=== PATIENT | male | born 1955 | race Caucasian/White ===

== ENCOUNTER 2021-10-02 16:40 | Emergency (ER) | payer OTHER ==
[2021-10-02 18:46] LABS: CORONAVIRUS COVID-19 NAA NEGATIVE (NEGATIVE)
== END 2021-10-02 19:25 | disposition other institution (70) ==
LOC: JP.ED 16:40
DX: F10.139 Alcohol abuse with withdrawal, unspecified (principal); Z79.82 Long term (current) use of aspirin; Z79.02 Long term (current) use of antithrombotics/antiplatelets; Z79.899 Other long term (current) drug therapy; Z20.822 Contact with and (suspected) exposure to COVID-19; Y90.0 Blood alcohol level of less than 20 mg/100 ml
CPT/HCPCS: 0241U; 36415; 80053; 80305; 80307; 81001; 85025; 99285

== ENCOUNTER 2021-11-04 15:46 | Emergency (ER) | payer MEDICARE, OTHER ==
[2021-11-04 18:10] LABS: CORONAVIRUS COVID-19 NAA NEGATIVE (NEGATIVE)
[2021-11-04] MEDS: Thiamine 100 MG Tab PO SCH (20:46)
[2021-11-04] MEDS: Multivitamins with Iron/Calcium/Folic Acid/Minerals Tab PO SCH (20:46)
[2021-11-04] MEDS: Folic Acid 1 MG Tab PO SCH (20:46)
[2021-11-04] MEDS ORDERED: OLANZapine 5 MG Tab PO SCH (21:00)
[2021-11-05] MEDS ORDERED: Non-Formulary Medication 1 Each (Isosorbide Mononitrate [Imdur] 60 MG Tab.Er) PO SCH (14:30)
[2021-11-05] MEDS: Metoprolol Tartrate 25 MG Tab PO SCH ×2 (16:59→21:15)
[2021-11-05] MEDS: OLANZapine 5 MG Tab PO SCH (17:00)
[2021-11-05] MEDS: Folic Acid 1 MG Tab PO SCH ×2 (17:07→21:16)
[2021-11-05] MEDS: Aspirin 81 MG Tab.EC PO SCH (17:09)
[2021-11-05] MEDS: Clopidogrel 75 MG Tab PO SCH (17:09)
[2021-11-05] MEDS ORDERED: Thiamine 100 MG Tab PO SCH (21:00)
[2021-11-05] MEDS ORDERED: Non-Formulary Medication 1 Each (Atorvastatin Calcium [Lipitor] 40 MG Tablet) PO SCH (21:00)
[2021-11-05] MEDS: Haloperidol Lactate 5 MG/ML SDV IM SCH (21:04)
[2021-11-05] MEDS: Thiamine 100 MG Tab PO SCH (21:15)
[2021-11-05] MEDS: Multivitamins with Iron/Calcium/Folic Acid/Minerals Tab PO SCH (21:15)
[2021-11-06] MEDS: Clopidogrel 75 MG Tab PO SCH (08:20)
[2021-11-06] MEDS: OLANZapine 5 MG Tab PO SCH (08:22)
[2021-11-06] MEDS: Metoprolol Tartrate 25 MG Tab PO SCH ×3 (08:24→21:41)
[2021-11-06] MEDS: Aspirin 81 MG Tab.EC PO SCH (08:42)
[2021-11-06] MEDS: Folic Acid 1 MG Tab PO SCH ×2 (08:43→20:33)
[2021-11-06] MEDS: Isosorbide Mononitrate 30 MG Tab.ER PO SCH (08:43)
[2021-11-06] MEDS: Haloperidol Lactate 5 MG/ML SDV IM SCH (20:39)
[2021-11-06] MEDS: Hydrochlorothiazide 25 MG Tab PO SCH (20:40)
[2021-11-06] MEDS: Thiamine 100 MG Tab PO SCH ×2 (20:40→21:40)
[2021-11-06] MEDS: Multivitamins with Iron/Calcium/Folic Acid/Minerals Tab PO SCH ×2 (20:40→21:41)
[2021-11-06] MEDS: atorvaSTATin 20 MG Tab PO SCH ×2 (20:40→21:40)
[2021-11-07] MEDS: Clopidogrel 75 MG Tab PO SCH (10:36)
[2021-11-07] MEDS: Isosorbide Mononitrate 30 MG Tab.ER PO SCH (10:36)
[2021-11-07] MEDS: OLANZapine 5 MG Tab PO SCH (10:36)
[2021-11-07] MEDS: Folic Acid 1 MG Tab PO SCH ×2 (10:37→19:55)
[2021-11-07] MEDS: Aspirin 81 MG Tab.EC PO SCH (10:37)
[2021-11-07] MEDS: Metoprolol Tartrate 25 MG Tab PO SCH ×2 (10:37→20:25)
[2021-11-07] MEDS: atorvaSTATin 20 MG Tab PO SCH (20:25)
[2021-11-07] MEDS: Haloperidol Lactate 5 MG/ML SDV IM SCH (20:25)
[2021-11-07] MEDS: Hydrochlorothiazide 25 MG Tab PO SCH (20:25)
[2021-11-07] MEDS: Multivitamins with Iron/Calcium/Folic Acid/Minerals Tab PO SCH (20:26)
[2021-11-07] MEDS: Thiamine 100 MG Tab PO SCH (20:26)
[2021-11-08] MEDS: Folic Acid 1 MG Tab PO SCH ×2 (09:23→20:21)
[2021-11-08] MEDS: Hydrochlorothiazide 25 MG Tab PO SCH (09:23)
[2021-11-08] MEDS: Aspirin 81 MG Tab.EC PO SCH (09:23)
[2021-11-08] MEDS: Clopidogrel 75 MG Tab PO SCH (09:24)
[2021-11-08] MEDS: Metoprolol Tartrate 25 MG Tab PO SCH ×2 (09:24→20:23)
[2021-11-08] MEDS: OLANZapine 5 MG Tab PO SCH (09:24)
[2021-11-08] MEDS: Isosorbide Mononitrate 30 MG Tab.ER PO SCH (09:24)
[2021-11-08] MEDS: cloNIDine 0.1 MG Tab PO PRN ×2 (13:13→21:39)
[2021-11-08] MEDS: Multivitamins with Iron/Calcium/Folic Acid/Minerals Tab PO SCH (20:21)
[2021-11-08] MEDS: Thiamine 100 MG Tab PO SCH (20:21)
[2021-11-08] MEDS: atorvaSTATin 20 MG Tab PO SCH (20:21)
[2021-11-08] MEDS: Haloperidol Lactate 5 MG/ML SDV IM SCH (20:22)
[2021-11-09] MEDS: Folic Acid 1 MG Tab PO SCH ×2 (09:37→19:49)
[2021-11-09] MEDS: Hydrochlorothiazide 25 MG Tab PO SCH (09:38)
[2021-11-09] MEDS: Isosorbide Mononitrate 30 MG Tab.ER PO SCH (09:38)
[2021-11-09] MEDS: Metoprolol Tartrate 25 MG Tab PO SCH ×2 (09:38→19:54)
[2021-11-09] MEDS: Clopidogrel 75 MG Tab PO SCH (09:38)
[2021-11-09] MEDS: OLANZapine 5 MG Tab PO SCH (09:38)
[2021-11-09] MEDS: Aspirin 81 MG Tab.EC PO SCH (09:38)
[2021-11-09] MEDS: cloNIDine 0.1 MG Tab PO PRN ×2 (17:28→23:25)
[2021-11-09] MEDS: Multivitamins with Iron/Calcium/Folic Acid/Minerals Tab PO SCH (19:50)
[2021-11-09] MEDS: Thiamine 100 MG Tab PO SCH (19:50)
[2021-11-09] MEDS: atorvaSTATin 20 MG Tab PO SCH (19:51)
[2021-11-09] MEDS: Haloperidol Lactate 5 MG/ML SDV IM SCH (19:54)
[2021-11-10] MEDS: Clopidogrel 75 MG Tab PO SCH (08:50)
[2021-11-10] MEDS: OLANZapine 5 MG Tab PO SCH (08:50)
[2021-11-10] MEDS: Isosorbide Mononitrate 30 MG Tab.ER PO SCH (08:50)
[2021-11-10] MEDS: Aspirin 81 MG Tab.EC PO SCH (08:50)
[2021-11-10] MEDS: Hydrochlorothiazide 25 MG Tab PO SCH (08:57)
[2021-11-10] MEDS: Metoprolol Tartrate 25 MG Tab PO SCH ×2 (08:58→21:36)
[2021-11-10] MEDS: Folic Acid 1 MG Tab PO SCH ×2 (09:00→21:23)
[2021-11-10] MEDS: cloNIDine 0.1 MG Tab PO PRN ×2 (18:00→21:36)
[2021-11-10] MEDS: Haloperidol Lactate 5 MG/ML SDV IM SCH (21:24)
[2021-11-10] MEDS: Thiamine 100 MG Tab PO SCH (21:25)
[2021-11-10] MEDS: atorvaSTATin 20 MG Tab PO SCH (21:25)
[2021-11-10] MEDS: Multivitamins with Iron/Calcium/Folic Acid/Minerals Tab PO SCH (21:25)
[2021-11-11] MEDS: Aspirin 81 MG Tab.EC PO SCH (08:34)
[2021-11-11] MEDS: Folic Acid 1 MG Tab PO SCH ×2 (08:34→21:30)
[2021-11-11] MEDS: Hydrochlorothiazide 25 MG Tab PO SCH (08:34)
[2021-11-11] MEDS: Metoprolol Tartrate 25 MG Tab PO SCH ×2 (08:35→21:30)
[2021-11-11] MEDS: Isosorbide Mononitrate 30 MG Tab.ER PO SCH (08:35)
[2021-11-11] MEDS: OLANZapine 5 MG Tab PO SCH (08:36)
[2021-11-11] MEDS: Clopidogrel 75 MG Tab PO SCH (08:36)
[2021-11-11] MEDS ORDERED: Haloperidol 5 MG Tab PO SCH (21:00)
[2021-11-11] MEDS: cloNIDine 0.1 MG Tab PO PRN (21:29)
[2021-11-11] MEDS: atorvaSTATin 20 MG Tab PO SCH (21:30)
[2021-11-11] MEDS: Thiamine 100 MG Tab PO SCH (21:30)
[2021-11-11] MEDS: Multivitamins with Iron/Calcium/Folic Acid/Minerals Tab PO SCH (21:30)
[2021-11-12] MEDS: cloNIDine 0.1 MG Tab PO PRN (08:00)
[2021-11-12] MEDS: Clopidogrel 75 MG Tab PO SCH (08:00)
[2021-11-12] MEDS: Isosorbide Mononitrate 30 MG Tab.ER PO SCH (08:00)
[2021-11-12] MEDS: Metoprolol Tartrate 25 MG Tab PO SCH (08:01)
[2021-11-12] MEDS: Hydrochlorothiazide 25 MG Tab PO SCH (08:02)
[2021-11-12] MEDS: Folic Acid 1 MG Tab PO SCH (08:02)
[2021-11-12] MEDS: OLANZapine 5 MG Tab PO SCH (08:03)
[2021-11-12] MEDS: Aspirin 81 MG Tab.EC PO SCH (08:03)
== END 2021-11-12 09:08 ==
LOC: JP.ED 15:46
DX: F10.151 Alcohol abuse with alcohol-induced psychotic disorder with hallucinations (principal); F29 Unspecified psychosis not due to a substance or known physiological condition; I25.10 Atherosclerotic heart disease of native coronary artery without angina pectoris; I10 Essential (primary) hypertension; I25.2 Old myocardial infarction; M19.90 Unspecified osteoarthritis, unspecified site; Z79.899 Other long term (current) drug therapy; Z20.822 Contact with and (suspected) exposure to COVID-19; Z79.82 Long term (current) use of aspirin
CPT/HCPCS: 0241U; 36415; 80053; 80305-QW; 81001; 82607; 82746; 83735; 84100; 85025; 99283; 99285; A9270-GY